=== PATIENT | female | born 1980 | race Hispanic/Latino ===

== ENCOUNTER 2018-07-05 21:51 | Emergency (ER) | payer SELFPAY ==
[~2018-07-05] VITALS: Ht 160 cm; Wt 117.9 kg
[2018-07-05] MEDS ORDERED: SODIUM CHLORIDE 0.9% 1000ML 1,000 ML IV SCH (22:15)
[2018-07-05 23:36] VITALS: BP 143/84
== END 2018-07-06 00:52 | disposition home or self-care (01) ==
LOC: FSED 21:51
DX: R42 Dizziness and giddiness (principal); R55 Syncope and collapse
CPT/HCPCS: 71046; 80053; 80307; 81003; 81025; 85025; 85379; 93005; 99283